=== PATIENT | female | born 1975 | race Two or more races ===

== ENCOUNTER 2018-05-18 09:28 | Outpatient (CLI) | payer OTHER | END 2018-05-18 09:45 | disposition home or self-care (01) | LOC: MAMO-SONO 09:28 | DX: Z12.31 Encounter for screening mammogram for malignant neoplasm of breast (principal); N64.4 Mastodynia ==

== ENCOUNTER → 2020-06-11 | Outpatient (CLI) | payer OTHER | END | disposition home or self-care (01) | LOC: MAMO-SONO 09:04 | PROVIDERS: ATTEND Obstetrics & Gynecology | DX: N60.12 Diffuse cystic mastopathy of left breast (principal); N60.11 Diffuse cystic mastopathy of right breast ==